=== PATIENT | female | born 1955 ===

== ENCOUNTER 2017-12-22 09:47 | Day surgery (SDC) | payer MEDICAID ==
[2017-09-10 19:02] VITALS: BMI 29.2
[2017-12-22] MEDS ORDERED: Lactated Ringer's 500 ML IV ONE (10:22)
[2017-12-22 10:38] VITALS: TEMP 97
[2017-12-22] MEDS ORDERED: Propofol 10 mg/ml Inj (20 ML) ONE (11:12)
[2017-12-22 11:40] VITALS: BP 112/66; PULSE 75; RESP 16; O2SAT 96
== END 2017-12-22 12:17 | disposition home or self-care (01) ==
LOC: H.ENDO 09:47
PROVIDERS: ATTEND Internal Medicine Gastroenterology
DX: Z12.11 Encounter for screening for malignant neoplasm of colon (principal); K57.92 Diverticulitis of intestine, part unspecified, without perforation or abscess without bleeding; K64.1 Second degree hemorrhoids; I10 Essential (primary) hypertension; M06.9 Rheumatoid arthritis, unspecified; E78.5 Hyperlipidemia, unspecified; E66.9 Obesity, unspecified; R10.13 Epigastric pain; Z68.29 Body mass index [BMI] 29.0-29.9, adult
CPT/HCPCS: 45378; J2001; J2704; J7120